=== PATIENT | female | born 1990 | race Caucasian/White ===

== ENCOUNTER 2018-09-17 14:24 | Emergency (ER) | payer OTHER ==
[~2018-09-17] VITALS: Ht 170.2 cm; Wt 84.4 kg
--- OUTSIDE RECORDS SUMMARY | 2018-09-17 14:30 | XMS REPORT ---
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 Name Role Phone VÍCTOR KELLY CP Unavailable Allergies, Adverse Reactions, Alerts Substance Reaction Event Type Penicillamine Info Not Available Drug Allergy Problems Problem Type Condition Code Onset Dates Condition Status Assessment Dental examination Z01.20 Active Medications Medication Code System Code Instructions Start Date End Date Status Dosage Clindamycin HCl [facility] [address]-20 not defined [place] [facility] [address]-64 5-325 MG Orally every 6 hrs Dec 22, 2014 Dec 26, 2014 1 tablet as needed Procedures Procedure Coding System Code Date INTRAORL-PERIAPICAL 1 FILM 98876 CPT-4 D0220 Dec 22, 2014 BITEWING - SINGLE FILM CPT-4 D0270 Dec 22, 2014 LTD ORAL EVALUATION - PROBLEM FOCUS CPT-4 D0140 Dec 22, 2014 Vital Signs Date/Time: Dec 22, 2014 Blood Pressure Diastolic 93 mmHg Blood Pressure Systolic 127 mmHg Results No Known Results Summary Purpose eClinicalWorks Submission
--- OUTSIDE RECORDS SUMMARY | 2018-09-17 14:30 | XMS REPORT ---
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 Role Phone VÍCTOR KELLY CP Unavailable Allergies, Adverse Reactions, Alerts Substance Reaction Event Type Penicillamine Info Not Available Drug Allergy Problems Problem Type Condition Code Onset Dates Condition Status Assessment Encounter for dental examination Z01.20 Active Medications Medication Code System Code Instructions Start Date End Date Status Dosage Clindamycin HCl [facility] [address]-56 not defined [place] [facility] [address]-41 5-325 MG Orally every 6 hrs Dec 29, 2014 Jan 02, 2015 1 tablet as needed Procedures Procedure Coding System Code Date Billing Notes on claim CPT-4 EC109 Dec 29, 2014 Dental no charge CPT-4 D0099 Dec 29, 2014 Vital Signs Date/Time: Dec 29, 2014 Blood Pressure Diastolic 97 mmHg Blood Pressure Systolic 138 mmHg Results No Known Results Summary Purpose eClinicalWorks Submission
--- NOTE | 2018-09-17 14:48 | ED General ---
General Chief Complaint: General Problems/Pain Stated Complaint: MEDICAL CLEARANCE Source of Information: Patient, Police Exam Limitations: No Limitations History of Present Illness Date Seen by Provider: Sep 17, 2018 Time Seen by Provider: 14:42 Initial Comments This 28-year-old female presents with the police for medical clearance for incarceration after being arrested for an outstanding warrant. The patient had a left ankle sprain approximately a month ago. She has no other medical complaints at this time. Allergies and Home Medications Patient Home Medication List Home Medication List Reviewed: Yes Review of Systems Review of Systems Constitutional: no symptoms reported Respiratory: no symptoms reported Cardiovascular: no symptoms reported Gastrointestinal: no symptoms reported Genitourinary: no symptoms reported Musculoskeletal: see HPI, joint pain Skin: no symptoms reported Psychiatric/Neurological: No Symptoms Reported Hematologic/Lymphatic: No Symptoms Reported Past Ccfuqdp-Fmbifm-Lkyksi Hx Past Med/Social Hx: Reviewed Nursing Past Med/Soc Hx Patient Social History Alcohol Use: Occasionally Uses Recreational Drug Use: Yes ("When she can get away with her being on probation") Drug of Choice: marijuana Smoking Status: Current Everyday Smoker Type Used: Cigarettes 2nd Hand Smoke Exposure: Yes Recent Hopitalizations: No Physical Abuse: No Sexual Abuse: No Mistreated: No Fear: No Seasonal Allergies Seasonal Allergies: No Past Medical History Surgeries: No Respiratory: No Cardiac: No Neurological: No Genitourinary: No Gastrointestinal: No Musculoskeletal: No Endocrine: No HEENT: No Cancer: No Psychosocial: No Integumentary: No Blood Disorders: No Physical Exam Vital Signs Capillary Refill : Height, Weight, BMI Height: '" Weight: lbs. oz. kg; BMI Method: General Appearance: No Apparent Distress, WD/WN Eyes: Bilateral Eye Normal Inspection HEENT: Normal ENT Inspection Neck: Normal Inspection Respiratory: Lungs Clear, Normal Breath Sounds Gastrointestinal: Normal Bowel Sounds, Non Tender Extremity: Other (Aircast left ankle.) Neurologic/Psychiatric: Alert, No Motor/Sensory Deficits Skin: Normal Color, Warm/Dry Progress/Results/Core Measures Suspected Sepsis SIRS Temperature: Pulse: Respiratory Rate: Blood Pressure / Mean: Results/Orders Vital Signs/I&O Capillary Refill : Progress Note : Time: 14:44 Progress Note The patient had no evidence of acute injury or acute finding. The Aircast left ankle has been used for the last month. The patient's ankle is improving. The patient was released to the custody of the police. Departure Impression Primary Impression: General medical exam Disposition: 21 DIS/[address]/LAW ENFORCE Condition: Unchanged Departure-Patient Inst. Decision time for Depature: 14:46 Add. Discharge Instructions: Released in police custody. Return if any problems or questions. All discharge instructions reviewed with patient and/or family. Voiced understanding. SHERRON GARRISON MD Sep 17, 2018 14:48
[2018-09-17 15:17] VITALS: BP 115/70
== END 2018-09-17 15:17 ==
LOC: ER FS 14:26
DX: Z00.00 Encounter for general adult medical examination without abnormal findings (principal); F12.10 Cannabis abuse, uncomplicated; F17.210 Nicotine dependence, cigarettes, uncomplicated
CPT/HCPCS: 99281

== ENCOUNTER 2018-10-10 22:24 | Emergency (ER) | payer SELFPAY ==
[~2018-10-10] VITALS: Ht 167.6 cm; Wt 83.5 kg
--- NOTE | 2018-10-10 22:37 | ED Lower Extremity ---
General Chief Complaint: Lower Extremity Stated Complaint: LT FOOT/ANKLE INJ History of Present Illness Date Seen by Provider: Oct 10, 2018 Time Seen by Provider: 22:36 Initial Comments patient has air splint on left ankle. she is intoxicated. she states she injured the foot and ankle 3-4 weeks ago and still has discomfort. playing softball. inspection is normal but she won't let me touch her ankle or foot. No imaging done before. I offered to xray for her. Allergies and Home Medications Allergies Coded Allergies: Penicillins (Verified Allergy, Unknown, 10/10/18) cephalexin (Verified Allergy, Unknown, 10/10/18) Patient Home Medication List Home Medication List Reviewed: Yes Review of Systems Constitutional: see HPI EENTM: see HPI Respiratory: see HPI Cardiovascular: see HPI Gastrointestinal: see HPI Genitourinary: see HPI Musculoskeletal: see HPI Skin: see HPI Psychiatric/Neurological: No Symptoms Reported, See HPI All Other Systems Reviewed Negative Unless Noted: Yes Past Khuenty-Shcnhz-Jigtyq Hx Patient Social History Drug of Choice: marijuana Type Used: Cigarettes 2nd Hand Smoke Exposure: Yes Recent Hopitalizations: No Seasonal Allergies Seasonal Allergies: No Past Medical History Surgeries: No Respiratory: No Cardiac: No Neurological: No Genitourinary: No Gastrointestinal: No Musculoskeletal: No Endocrine: No HEENT: No Cancer: No Psychosocial: No Integumentary: No Blood Disorders: No Physical Exam Vital Signs Vital Signs - First Documented 10/10/18 22:30 Temp 98.8 Pulse 96 Resp 18 B/P (MAP) 137/87 (104) Pulse Ox 100 O2 Delivery Room Air Capillary Refill : Height, Weight, BMI Height: 5'7.00" Weight: 186lbs. 0oz. 84.557011lw; BMI Method:Stated General Appearance: WD/WN, no apparent distress HEENT: PERRL/EOMI, normal ENT inspection, TMs normal, pharynx normal Neck: non-tender, full range of motion, supple, normal inspection Legs: right leg non-tender; bilateral leg non-tender; right leg normal inspection; bilateral leg normal inspection; right leg normal range of motion; bilateral leg normal range of motion; right leg no evidence of injury; bilateral leg no evidence of injury; right leg abrasions, right leg limited range of motion, right leg swelling Feet: left foot pain, left foot soft tissue tenderness Neurologic/Psychiatric: other Skin: normal color, warm/dry Progress/Results/Core Measures Results/Orders My Orders Orders - LAWSON AMBROSIO MD Foot 3 View Left (10/10/18 22:45) Vital Signs/I&O 10/10/18 10/10/18 22:30 22:46 Temp 98.8 Pulse 96 96 Resp 18 18 B/P (MAP) 137/87 (104) 137/87 (104) Pulse Ox 100 100 O2 Delivery Room Air Departure Impression Primary Impression: Sprain or strain of foot Disposition: 07 AGAINST MEDICAL ADVICE Condition: Stable Departure-Patient Inst. Referrals: NO,LOCAL PHYSICIAN (PCP/Family) Primary Care Physician LAWSON AMBROSIO MD Oct 10, 2018 22:37
[2018-10-10 22:46] VITALS: BP 137/87
== END 2018-10-10 22:47 | disposition left against medical advice (07) ==
LOC: EDUNIT# 22:24 → ER FS 22:27
DX: S93.602A Unspecified sprain of left foot, initial encounter (principal); Z88.1 Allergy status to other antibiotic agents; Z88.0 Allergy status to penicillin; Z77.22 Contact with and (suspected) exposure to environmental tobacco smoke (acute) (chronic); X58.XXXA Exposure to other specified factors, initial encounter; Y93.64 Activity, baseball
CPT/HCPCS: 99282

== ENCOUNTER 2019-08-11 00:06 | Emergency (ER) | payer SELFPAY ==
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
--- NOTE | 2019-08-11 00:17 | NUR ---
After checking in, pt was informed that her significant other could not come back to the room with her due to hospital policy during the current pandemic. Pt decided that she was going to leave instead of being seen.
== END 2019-08-11 00:21 | disposition left against medical advice (07) ==
LOC: EDUNIT# 00:06 → ER FS 00:11
DX: R07.81 Pleurodynia (principal); V89.2XXA Person injured in unspecified motor-vehicle accident, traffic, initial encounter

== ENCOUNTER 2020-01-11 18:32 | Emergency (ER) | payer MEDICAID, OTHER ==
[2020-01-11] MEDS ORDERED: METH4TAB10 PO (19:03)
[2020-01-11] MEDS ORDERED: HYDR25CA PO (19:03)
--- NOTE | 2020-01-11 19:03 | ED Integumentary General ---
General Chief Complaint: Skin/Wound Problems Stated Complaint: POISON CHRISTIANO Nursing Triage Note: Pt thinks she may have poison christiano to bilateral lower extremities and face Source: patient Exam Limitations: no limitations History of Present Illness Date Seen by Provider: Jan 11, 2020 Time Seen by Provider: 18:49 Initial Comments The patient arrives to ER by private conveyance with chief complaint of an itchy rash after getting in some poison christiano 3 or 4 days ago. She has some on bilateral lower extremities as well as on her forehead. She's been using calamine lotion u nsuccessfully to control the itching. She would like a test while she is here. She says she is about 7 days overdue for her last menstrual cycle. She denies fevers chills cough shortness of breath. Allergies and Home Medications Allergies Coded Allergies: Penicillins (Verified Allergy, Unknown, 10/10/18) cephalexin (Verified Allergy, Unknown, 10/10/18) Home Medications Hydroxyzine Pamoate 25 Mg Capsule, 25 MG PO Q6H PRN for ITCHING Prescribed by: RIC SEPULVEDA on 01/11/201902 Methylprednisolone 4 Mg Tab.ds.pk, 4 MG PO UD PER DOSE PACK INSTRUCTIONS Prescribed by: RIC SEPULVEDA on 01/11/201902 Patient Home Medication List Home Medication List Reviewed: Yes Review of Systems Review of Systems Constitutional: No chills, No diaphoresis EENTM: No ear discharge, No ear pain Respiratory: No cough, No short of breath Cardiovascular: No chest pain, No palpitations Gastrointestinal: No abdominal pain, No nausea, No vomiting Past Wojdyya-Efwuuz-Bdpjuj Hx Patient Social History Alcohol Use: Denies Use Recreational Drug Use: Yes Drug of Choice: marijuana, meth Smoking Status: Current Everyday Smoker Type Used: Cigarettes 2nd Hand Smoke Exposure: Yes Recent Foreign Travel: No Contact w/Someone Who Travel: No Recent Infectious Disease Expo: No Recent Hopitalizations: No Physical Abuse: No Sexual Abuse: No Seasonal Allergies Seasonal Allergies: No Past Medical History Surgeries: No Respiratory: No Cardiac: No Neurological: No Genitourinary: No Gastrointestinal: No Musculoskeletal: No Endocrine: No HEENT: No Cancer: No Psychosocial: No Integumentary: No Blood Disorders: No Physical Exam Vital Signs Vital Signs - First Documented 01/11/20 18:42 Temp 36.7 Pulse 121 Resp 18 B/P (MAP) 113/72 (86) Pulse Ox 100 O2 Delivery Room Air Capillary Refill : Less Than 3 Seconds General Appearance: WD/WN, no apparent distress Neck: full range of motion, normal inspection Cardiovascular: normal peripheral pulses, regular rate, rhythm Respiratory: no respiratory distress, no accessory muscle use Skin: other (erythematous rash with a serous discharge and treatment over it on bilateral lower extremities and a small streak across to her left forehead.) Progress/Results/Core Measures Results/Orders My Orders Orders - RIC SEPULVEDA Urine Bedside (01/11/20 18:57) Vital Signs/I&O 01/11/20 18:42 Temp 36.7 Pulse 121 Resp 18 B/P (MAP) 113/72 (86) Pulse Ox 100 O2 Delivery Room Air Blood Pressure Mean: 86 Departure Impression Primary Impression: Contact dermatitis due to poison christiano Additional Impression: Qualified Codes: Z3A.01 - Less than 8 weeks gestation of Disposition: 01 HOME, SELF-CARE Condition: Stable Departure-Patient Inst. Decision time for Depature: 19:00 Referrals: NO,LOCAL PHYSICIAN (PCP/Family) Primary Care Physician Patient Instructions: Poison [place], Poison [place], Poison [place] (DC) Add. Discharge Instructions: Keep the skin clean with regular soap and water. You may use hypoallergenic lotions on the unaffected skin. You may continue to use calamine lotion to prevent the itching. Benadryl 1-2 tablets every 6 hours or you can pickling operator the prescription for Vistaril and use one tablet every 6 hours as necessary for breakthrough itching. Zyrtec or Claritin once a day will also help reduce itching. Apply a thin layer of the steroid over the lesions twice daily for the next week. You may stop doing this as soon as the lesions disappear. All discharge instructions reviewed with patient and/or family. Voiced u nderstanding. Scripts Triamcinolone Acet (Triamcinolone Acetonide 0.1% Cream) 15 Gm Cr 1 GM TP BID for 7 Days, #1 TUBE 0 Refills Prov: RIC SEPULVEDA 01/11/20 Hydroxyzine Pamoate (Vistaril) 25 Mg Capsule 25 MG PO Q6H PRN for ITCHING, #20 CAP 0 Refills Prov: RIC SEPULVEDA 01/11/20 RIC SEPULVEDA Jan 11, 2020 19:03
[2020-01-11 19:07] VITALS: BP 113/72
[2020-01-11] MEDS ORDERED: TR1C15 TP (19:09)
== END 2020-01-11 19:13 | disposition home or self-care (01) ==
LOC: EDUNIT# 18:32 → ER FS 18:33
DX: O99.711 Diseases of the skin and subcutaneous tissue complicating pregnancy, first trimester (principal); L25.5 Unspecified contact dermatitis due to plants, except food; O99.331 Smoking (tobacco) complicating pregnancy, first trimester; F17.210 Nicotine dependence, cigarettes, uncomplicated; Z3A.01 Less than 8 weeks gestation of pregnancy
CPT/HCPCS: 84703; 99282

== ENCOUNTER 2020-03-29 21:36 | Emergency (ER) | payer MEDICAID ==
[~2020-03-29] VITALS: Ht 167.7 cm; Wt 109.0 kg
[~2020-03-29 21:36] MED LIST: HYDR25CA PO; METH4TAB10 PO; TR1C15 TP
[2020-03-29 21:37] VITALS: BP 118/53
--- NOTE | 2020-03-29 21:58 | ED GI ---
General Stated Complaint: OB,ABD PAIN Source of Information: Patient History of Present Illness Date Seen by Provider: Mar 29, 2020 Time Seen by Provider: 21:49 Initial Comments 29 y/o @ about 16 weeks by LMP presents w abdominal cramping today. Denies vaginal bleeding or loss of fluid. OB is Dr Caldwell in [place], does not know when she has her next appointment. No recent illness, no fever or chills, no pain with urination and no back pain. Allergies and Home Medications Allergies Coded Allergies: Penicillins (Verified Allergy, Unknown, 10/10/18) cephalexin (Verified Allergy, Unknown, 10/10/18) Home Medications Hydroxyzine Pamoate 25 Mg Capsule, 25 MG PO Q6H PRN for ITCHING Prescribed by: RIC SEPULVEDA on 01/11/201902 Triamcinolone Acet 15 Gm Cr, 1 GM TP BID Prescribed by: RIC SEPULVEDA on 01/11/201908 Patient Home Medication List Home Medication List Reviewed: Yes Review of Systems Review of Systems Constitutional: No fever, No malaise Respiratory: Denies Cough, Denies Shortness of Air Cardiovascular: Denies Chest Pain, Denies Edema, Denies Lightheadedness, Denies Palpitations, Denies Syncope Gastrointestinal: See HPI, Abdominal Pain; Denies Constipated, Denies Diarrhea, Denies Nausea, Denies Poor Appetite, Denies Vomiting Musculoskeletal: No back pain, No joint pain Past Fpdocmq-Zfsgdo-Hegzez Hx Past Med/Social Hx: Reviewed Nursing Past Med/Soc Hx Patient Social History Drug of Choice: marijuana, meth Type Used: Cigarettes 2nd Hand Smoke Exposure: Yes Recent Hopitalizations: No Seasonal Allergies Seasonal Allergies: No Past Medical History Surgeries: No Respiratory: No Cardiac: No Neurological: No Genitourinary: No Gastrointestinal: No Musculoskeletal: No Endocrine: No HEENT: No Cancer: No Psychosocial: No Integumentary: No Blood Disorders: No Physical Exam Vital Signs Capillary Refill : Height/Weight/BMI Height: 5'6.00" Weight: 184lbs. 0oz. 83.773686ww; BMI Method:Stated General Appearance: WD/WN, no apparent distress Respiratory: chest non-tender, lungs clear Cardiovascular: regular rate, rhythm, no edema, no JVD Gastrointestinal: normal bowel sounds, soft, no organomegaly, no pulsatile mass; No guarding, No rebound; tenderness (diffuse, non-localized, no peritoneal signs) Extremities: no pedal edema Back: normal inspection, no CVA tenderness, no vertebral tenderness Neurologic/Psychiatric: alert, normal mood/affect Skin: normal color, warm/dry Progress/Results/Core Measures Progress Progress Note : Progress Note FHT= 150's Departure Impression Primary Impression: Abdominal pain during in second trimester Disposition: 01 HOME, SELF-CARE Condition: Stable Departure-Patient Inst. Referrals: RONEN CALDWELL DO (PCP/Family) Primary Care Physician Patient Instructions: Stomach Pain in Early Add. Discharge Instructions: Call Dr Caldwell office tomorrow morning to arrange for follow up care. Follow up in the nearest ER if your pain gets significantly worse. VALENCIA YANEZ DO Mar 29, 2020 21:58
[2020-03-29 22:14] LABS: CLARITY,URINE SL CLOUDY; COLOR,URINE YELLOW
[2020-03-29 22:15] LABS: BACTERIA,URINE FEW /HPF; BILIRUBIN,URINE NEGATIVE (NEGATIVE); GLUCOSE, URINE (UA) NEGATIVE (NEGATIVE); KETONES,URINE NEGATIVE (NEGATIVE); LEUKOCYTE ESTERASE ,URINE TRACE (NEGATIVE); NITRITE,URINE NEGATIVE (NEGATIVE); PROTEIN,URINE NEGATIVE (NEGATIVE); RBC,URINE 0-2 /HPF
[2020-03-29] MEDS ORDERED: ACETAMINOPHEN 500 MG TAB (TYLENOL) PO ONE (22:15)
== END 2020-03-29 22:30 | disposition home or self-care (01) ==
LOC: EDUNIT# 21:36 → ER FS 21:38
DX: O26.892 Other specified pregnancy related conditions, second trimester (principal); R10.84 Generalized abdominal pain; Z77.22 Contact with and (suspected) exposure to environmental tobacco smoke (acute) (chronic); Z88.0 Allergy status to penicillin; Z88.1 Allergy status to other antibiotic agents; Z3A.16 16 weeks gestation of pregnancy
CPT/HCPCS: 81000; 87088

== ENCOUNTER 2020-05-03 12:27 | Emergency (ER) | payer MEDICAID ==
[~2020-05-03] VITALS: Ht 170.1 cm; Wt 106.5 kg
[2020-05-03 12:28] VITALS: BP 123/58
[2020-05-03] MEDS ORDERED: Prenatal (12:43)
[2020-05-03] MEDS ORDERED: Folic Acid (12:43)
[2020-05-03] MEDS ORDERED: ACET1TAB43 PO (12:46)
[2020-05-03] MEDS ORDERED: CLIN300C12 PO (12:46)
--- NOTE | 2020-05-03 12:49 | ED EENT ---
History of Present Illness General Chief Complaint: Dental Problems/Pain Stated Complaint: DENTAL PAIN Source: patient History of Present Illness Date Seen by Provider: May 03, 2020 Time Seen by Provider: 12:28 Initial Comments 29 yo female that is and unsure of dates for her presents with complaint of dental pain worsening over the last week. she has a couple of broken teeth on her left lower jaw. in the last few days it has been getting more painful for her. She has some mild swelling to the gumline. She denies fever or chills. She has no vaginal bleeding, discharge, abdominal pain. She has not followed through with seeing Dr. Caldwell yet for any care. She does not have a dentist. She has taken tylenol with minimal relief of pain along with orajel. Allergies and Home Medications Allergies Coded Allergies: Penicillins (Verified Allergy, Unknown, 10/10/18) cephalexin (Verified Allergy, Unknown, 10/10/18) Home Medications Acetaminophen with Codeine 1 Each Tablet, 1 EACH PO Q8H PRN for PAIN-SEVERE (8- 10) Prescribed by: CARMEN CHAMPION on 05/03/20 1246 Clindamycin HCl 300 Mg Capsule, 300 MG PO TID Prescribed by: CARMEN CHAMPION on 05/03/20 1246 Patient Home Medication List Home Medication List Reviewed: Yes Review of Systems Review of Systems Constitutional: No chills, No fever Eyes: No Symptoms Reported Ears: No Symptoms Reported Nose: no symptoms reported Mouth: see HPI Throat: no symptoms reported Respiratory: no symptoms reported Cardiovascular: no symptoms reported Gastrointestinal: no symptoms reported Musculoskeletal: no symptoms reported Skin: no symptoms reported Neurological: No Symptoms Reported Hematologic/Lymphatic: No Symptoms Reported Past Lavdgtn-Hmzbmt-Qwilsb Hx Past Med/Social Hx: Reviewed Nursing Past Med/Soc Hx Patient Social History Drug of Choice: marijuana, meth Type Used: Cigarettes 2nd Hand Smoke Exposure: Yes Recent Hopitalizations: No Seasonal Allergies Seasonal Allergies: No Past Medical History Surgeries: No Respiratory: No Cardiac: No Neurological: No Genitourinary: No Gastrointestinal: No Musculoskeletal: No Endocrine: No HEENT: No Cancer: No Psychosocial: No Integumentary: No Blood Disorders: No Physical Exam Vital Signs Vital Signs - First Documented 05/03/20 12:28 Temp 36.0 Pulse 97 Resp 18 B/P (MAP) 117/38 (64) O2 Delivery Room Air Height, Weight, BMI Height: 5'6.00" Weight: 184lbs. 0oz. 83.621243wk; 38.00 BMI Method:Stated General Appearance: WD/WN, no apparent distress Mouth/Throat: dental tenderness, other (gum swelling and missing teeth with widespread dental decay) Neck: non-tender, full range of motion, supple, normal inspection Cardiovascular: normal peripheral pulses Neurologic/Psychiatric: alert, normal mood/affect, oriented x 3 Skin: normal color, warm/dry Progress/Results/Core Measures Results/Orders Vital Signs/I&O 05/03/20 12:28 Temp 36.0 Pulse 97 Resp 18 B/P (MAP) 117/38 (64) O2 Delivery Room Air Progress Progress Note : Progress Note stressed importance of seeing Dr. Caldwell or OB of her choice for follow up and to establish care for her . Follow up with dentist for her teeth and this pain and broken teeth in her mouth. Take antibiotic for her dental pain and possible infection. Prescribe a few Tylenol #3 for more severe pain. Departure Impression Primary Impression: Pain due to dental caries Additional Impression: , incidental Disposition: HOME, SELF-CARE Condition: Stable Departure-Patient Inst. Decision time for Depature: 12:46 Referrals: NO,LOCAL PHYSICIAN (PCP) Primary Care Physician RONEN CALDWELL DO Patient Instructions: Dental Pain ED, Tooth Decay, Adult (DC) Add. Discharge Instructions: Follow up with Dr. Caldwell and with a Dentist as soon as possible. [facility] has dental services and you can call [phone] to check about dental clinic availability. [facility] at [phone] [facility] at [phone] Dr. Dejesus at [phone] All discharge instructions reviewed with patient and/or family. Voiced understanding. Scripts Acetaminophen with Codeine (Acetaminophen-Cod #3 Tablet) 1 Each Tablet 1 EACH PO Q8H PRN for PAIN-SEVERE (8-10) for 3 Days, #9 TAB 0 Refills Prov: CARMEN CHAMPION MD 05/03/20 Clindamycin HCl (Clindamycin HCl) 300 Mg Capsule 300 MG PO TID for dental infection for 10 Days, #30 CAP 0 Refills Prov: CARMEN CHAMPION MD 05/03/20 Images Mouth/Nose 1 - Caries (widespread dental decay), Fracture Tooth (broken teeth down to the gumline with cavities present and swelling to gumline tissue), Swelling, Tenderness CARMEN CHAMPION MD May 03, 2020 12:49
== END 2020-05-03 12:58 | disposition home or self-care (01) ==
LOC: EDUNIT# 12:27 → ER FS 12:29
DX: K02.9 Dental caries, unspecified (principal); Z33.1 Pregnant state, incidental; Z77.22 Contact with and (suspected) exposure to environmental tobacco smoke (acute) (chronic); Z88.0 Allergy status to penicillin; Z88.1 Allergy status to other antibiotic agents
CPT/HCPCS: 99282